=== PATIENT | female | born 1975 | race Caucasian/White ===

== ENCOUNTER → 2020-03-29 | Outpatient (CLI) | payer BC | LOC: KOH-I 11:47 | DX: M25.561 Pain in right knee (principal); M17.11 Unilateral primary osteoarthritis, right knee | CPT/HCPCS: 73562 ==

== ENCOUNTER → 2020-08-23 | Outpatient (CLI) | payer BC | LOC: NM 13:27 | DX: Z00.00 Encounter for general adult medical examination without abnormal findings (principal) | CPT/HCPCS: 93017 ==

== ENCOUNTER → 2020-08-29 | Outpatient (CLI) | payer BC | LOC: HEART 5 08:35 | DX: Z00.00 Encounter for general adult medical examination without abnormal findings (principal) | CPT/HCPCS: 94010 ==

== ENCOUNTER → 2021-06-16 | Outpatient (CLI) | payer BC | LOC: KOH-I 12:45 | DX: M25.521 Pain in right elbow (principal); M25.522 Pain in left elbow | CPT/HCPCS: 73080 ==

== ENCOUNTER → 2021-09-29 | Day surgery (SDC) | payer BC ==
[~2021-09-29] MED LIST: AMOX TR-K CLV1 EAC4 PO
== END | disposition home or self-care (01) ==
LOC: OR 05:42
DX: K64.8 Other hemorrhoids (principal); Z88.1 Allergy status to other antibiotic agents; Z87.891 Personal history of nicotine dependence
CPT/HCPCS: J2405; J2704